=== PATIENT | female | born 1945 | race Caucasian/White ===

== ENCOUNTER 2020-08-29 07:06 | Observation (INO) ==
--- NOTE | 2020-07-21 12:07 | PAT Medication Instructions ---
Medication Instructions Date of Service July 21, 2020 Home Medications acetaminophen [Tylenol Arthritis] 650 mg PO Q12H aspirin [Aspir-81] 81 mg PO QAM calcium carbonate-vitamin D3 [Calcium 600 + D(3)] 1 cap PO QAM cholecalciferol (vitamin D3) 25 mcg PO QAM DO NOT take the morning of surgery calcium carbonate-vitamin D3 [Calcium 600 + D(3)] 1 cap PO QAM cholecalciferol (vitamin D3) 25 mcg PO QAM Take morning of surgery With a small sip of water, OTHERWISE NOTHING TO EAT OR DRINK AFTER MIDNIGHT: acetaminophen [Tylenol Arthritis] 650 mg PO Q12H (if needed, may be taken up to four hours before surgery) aspirin [Aspir-81] 81 mg PO QAM (unless otherwise instructed by your surgeon) Other Notes If you have any questions please call us at [phone] or [phone] or [phone] or [phone]
--- NOTE | 2020-07-26 09:21 | Anesthesiology Consultation ---
Date of Service July 26, 2020 Assessment & Plan (1) Encounter for pre-operative examination: - Abnormal preop CXR: Small focus of patchy nodular densities within the lingula. This could represent a low-grade pneumonia. Lobular density within the periphery the left midlung zone which favors overlapping tissue. However, dedicated chest CT is recommended to exclude the less likely possibility of a pleural-based lesion. Awaiting response from PCP regarding CXR findings. - Per assessment on 07/26: Travel screen negative. No known COVID-19 positive contacts or current COVID-19 related symptoms. Patient already had initial COVID vaccine > second vaccine scheduled 08/11. Surgeon arranging preop COVID testing. Awaiting results. Chart Review Chart Review: Patient seen in Pre Admission Testing History Surgery Operation Date: 08/29/20 07:15 Proposed Procedures p Right Total Hip Arthroplasty Anterior - Robert Castanon DO Height/Weight Height: 5 ft 4 in Weight: 48.9 kg Allergies Allergy/AdvReac Type Severity Reaction Status Date / Time No Known Allergies Allergy Verified 07/10/20 10:38 Medications Home Medications Medication Instructions Recorded Confirmed Last Taken aspirin [Aspir-81] 81 mg PO QAM 07/10/20 07/10/20 Unknown calcium carbonate-vitamin D3 1 cap PO QAM 07/10/20 07/10/20 Unknown [Calcium 600 + D(3)] cholecalciferol (vitamin D3) 25 mcg PO QAM 07/10/20 07/10/20 Unknown [Vitamin D3] Aleve 1 tab PO BID 07/26/20 07/26/20 Unknown Past Medical History Medical History Osteoarthritis Exercise / Class Metabolic Activity II 4-5 Yardwork/Stairs/Walk up hill Past Family History Family History Mother Diabetes Past Surgical History Surgical History History of bilateral tubal ligation History of cataract surgery bilat History of colonoscopy History of tooth extraction Past Anesthesia History No Hx of Anesthesia Complications and No Family Hx of Anesthesia Complications History of PONV No Hx of PONV and No Hx of Motion Sickness Social History Smoking Status: Former smoker Do You Dip or Chew Tobacco: No Smoking End Date: Quit 1983 (hx < 1/2 PPD x 10 years) Hx Alcohol Use: No Hx Substance Use: No substance use type: does not use Review of Systems No snoring. Patient denies chest pain, shortness of breath, dyspnea on exertion, fever, chills, cough, wheezing, palpitations. Physical Exam Vital Signs VITALS BP 164/72 (pt reports BP typically in normal range but sometimes elevated during doctor visits > advised to continue monitoring closely at home and contact PCP if continued elevated readings occur) P 96 TEMP 98.4 SP02 95%RA RESP 16 PHYSICAL Mildly decreased cervical extension Full TMJ range of motion. TMD 3 finger breaths Mallampati Score 3 Dentition: several missing sides/molars, + several caps (including upper front) Lungs: clear throughout to auscultation Cardiac: regular rate and rhythm, no murmurs noted Spine: normal Carotid arteries: negative bruit Extremities: no edema Testing Laboratory Results 07/26/20 10:02 07/26/20 10:02 PT 10.9 Seconds (9.0-12.0) 07/26/20 10:02 INR 1.1 (0.9-1.1) 07/26/20 10:02 APTT 26.1 Seconds (21.0-31.0) 07/26/20 10:02 Urine Color Yellow 07/26/20 10:02 Urine Appearance Clear (Clear) 07/26/20 10:02 Urine pH 7.5 (4.5-7.5) 07/26/20 10:02 Ur Specific [place] 1.011 (1.000-1.030) 07/26/20 10:02 Urine Protein Negative (Negative) 07/26/20 10:02 Urine Glucose (UA) Negative (Negative) 07/26/20 10:02 Urine Ketones Negative (Negative) 07/26/20 10:02 Urine Nitrite Negative (Negative) 07/26/20 10:02 Ur Leukocyte Esterase 1+ (Negative) H 07/26/20 10:02 Urine WBC (Auto) 1-5 /hpf (0-5) 07/26/20 10:02 Urine RBC (Auto) 0-4 /hpf (0-4) 07/26/20 10:02 U Hyaline Cast (Auto) 0 /lpf (0-5) 07/26/20 10:02 U Epithel Cells (Auto) 10-20 /lpf (0-5) H 07/26/20 10:02 Urine Bacteria (Auto) Negative (Negative) 07/26/20 10:02 Blood Type AB Positive 07/26/20 10:02 Antibody Screen NEGATIVE 07/26/20 10:02 Electrocardiogram Date: 07/26/20 NSR at 92bpm. iRBBB. unconfirmed report. Chest X-Ray Date: 07/26/20 Small focus of patchy nodular densities within the lingula. This could represent a low-grade pneumonia. Lobular density within the periphery the left midlung zone which favors overlapping tissue. However, dedicated chest CT is recommended to exclude the less likely possibility of a pleural-based lesion.
[2020-07-26 10:44] LABS: Basophils # (auto) 0.03 K/uL (0-0.2); Basophils % (auto) 0.5 %; Eosinophils # (auto) 0.05 K/uL (0-0.5); Eosinophils % (auto) 0.8 %; Hemoglobin 11.6 g/dL (12.0-16.0); Lymphocytes # (auto) 1.44 K/uL (1.2-3.4); Mean Corpuscular Hemoglobin 30.3 pg (25-34); Mean Corpuscular Hgb Conc 33.1 g/dL (32-36); Mean Corpuscular Volume 91.4 fL (80-100); Mean Platelet Volume 11.5 fL (7.4-10.4); Monocytes # (auto) 0.43 K/uL (0.11-0.59); Monocytes % (auto) 6.9 %; Neutrophils % (auto) 68.8 %; Platelet Count 278 K/uL (130-400); RDW Coefficient of Variation 13.1 % (11.5-14.5); RDW Standard Deviation 43.7 fL (36.4-46.3); Red Blood Count 3.83 M/uL (4.2-5.4); White Blood Count 6.25 K/uL (4.8-10.8)
--- NOTE | 2020-07-26 10:45 | XRay Report ---
XR chest Pre-admission PA/Lat HISTORY: Preop. COMPARISON: None. FINDINGS: Small patchy nodular densities within the lingula best seen on the lateral view. The right lung is clear. Lobular density within the periphery the left midlung zone is likely due to overlappin g soft tissue. However, a pleural-based lesion could also have a similar appearance. There is mild em physema. The heart is normal in size. No pleural effusions. No pneumothorax. IMPRESSION: 1. Small focus of patchy nodular densities within the lingula. This could represent a low-grade pneum onia. 2. Lobular density within the periphery the left midlung zone which favors overlapping tissue. Howeve r, dedicated chest CT is recommended to exclude the less likely possibility of a pleural-based lesion . 3. These findings were called/faxed to the referring physician following dictation. ACT 112: Negative or not required by law. Electronically signed by: Sammy Medel M.D. 07/26/2020 10:44 AM
[2020-07-26 10:49] LABS: BUN Creatinine Ratio 16.2 (10-20); Calcium 9.6 mg/dl (8.5-10.1); Creatinine Clr Calc Pharmacy 41.3 ml/min; Est GFR (African American) 73.5; Est GFR (Non-African American) 63.4; Potassium 4.2 mmol/L (3.5-5.1)
[2020-07-26 11:01] LABS: INR 1.1 (0.9-1.1); Partial Thromboplastin Time 26.1 Seconds (21.0-31.0); Prothrombin Time 10.9 Seconds (9.0-12.0)
[2020-07-26 11:07] LABS: Appearance Urine Clear (Clear); Bacteria Urine Automated Negative (Negative); Bilirubin Urine Negative (Negative); Blood Urine Trace (Negative); Cast Urine Automated 0 /lpf (0-5); Color Urine Yellow; Glucose Urine UA Negative (Negative); Ketones Urine Negative (Negative); Leukocyte Esterase Urine 1+ (Negative); Nitrite Urine Negative (Negative); Protein Urine Negative (Negative); RBC Urine Automated 0-4 /hpf (0-4); Specific Gravity Urine 1.011 (1.000-1.030); Urobilinogen Urine Negative (Negative); pH Urine 7.5 (4.5-7.5)
--- NOTE | 2020-07-27 06:12 | Electrocardiogram Report ---
Test Reason : Blood Pressure : / mmHG Vent. Rate : 092 BPM Atrial Rate : 092 BPM P-R Int : 138 ms QRS Dur : 094 ms QT Int : 370 ms P-R-T Axes : 077 076 062 degrees QTc Int : 457 ms Normal sinus rhythm Incomplete right bundle branch block Borderline ECG No previous ECGs available Confirmed by Ajit Gibson ([id number]) on 07/27/2020 6:11:57 AM Referred By: Robert Castanon Confirmed By:Ajit Gibson
--- NOTE | 2020-08-26 22:34 | History & Physical Report ---
Date of Service August 29, 2020 Assessment & Plan (1) Degenerative joint disease of right hip: I have indicated the patient for right anterior total hip replacement. The risks, benefits and complications of surgery were explained to the patient which include but not limited to infection, acute blood loss, DVT/PE, injury to nerves, vessels, bone, soft tissue, arthrofibrosis, chronic pain, failure of the prosthesis, hip dislocation, leg length discrepancy, need for additional surgery, cardiac and pulmonary events and . The patient wished to proceed with surgery and informed consent was obtained at this time. We will plan for 81mg ASA BID post-operatively for DVT prophylaxis. Upon discharge the patient will be discharged home with home health services. Appropriate clearances by PCP were obtained. History of Present Illness Chief Complaint: Right hip pain/DJD Primary Care Provider: Kleber Rodriguez The patient is a 75 year old female who presents with complaints of severe right hip pain and DJD. The patient has failed outpatient conservative treatments to this point which included NSAIDs, IA corticosteroid injection, home exercise/walking program. The patient's pain and limited function have progressed to the point where they severely hinder their activities of daily living and they no longer tolerate exercise programs. They are requesting to proceed with total hip replacement surgery. Allergies Allergy/AdvReac Type Severity Reaction Status Date / Time No Known Allergies Allergy Verified 08/29/20 08:01 Home Medications Medication Instructions Recorded Confirmed Type aspirin [Aspir-81] 81 mg PO QAM 07/10/20 08/29/20 History calcium carbonate-vitamin D3 1 cap PO QAM 07/10/20 08/29/20 History [Calcium 600 + D(3)] cholecalciferol (vitamin D3) 25 mcg PO QAM 07/10/20 08/29/20 History [Vitamin D3] Aleve 1 tab PO BID 07/26/20 08/29/20 History Past Med/Surg History Medical History Osteoarthritis Surgical History History of bilateral tubal ligation History of cataract surgery bilat History of colonoscopy History of tooth extraction Family History Mother Diabetes Social History Smoking Status: Former smoker Smoking End Date: Quit 1983 (hx < 1/2 PPD x 10 years); Second Hand Exposure: No; Do You Dip or Chew Tobacco: No; Tobacco Cessation Education Requested by Patient: No Hx Alcohol Use: No Hx Substance Use: No Preferred Language: Colombian Communication Ability: Effective Tanning Drum Operator Required: No Beliefs That Will Affect Care: None Current Living Situation: Spouse Other Information That Helps Us Care for You: No Feels Safe at Home: Yes Safety Concerns: Feels Safe At This Time Assistive Devices: Glasses Review of Systems Review of Systems: All systems reviewed & are unremarkable except as noted in HPI & below Constitutional: as per Subjective / HPI Physical Exam Physical Exam: RLE NVSI +EHL/FHL/TA/GS SILT grossly, +2 DP pulse, compartments soft NT, limited painful ROM of iker hip, antalgic gait. Constitutional: WD/WN, vitals as above Eyes: PERRL, conjunctivae normal, anicteric sclerae ENMT: external ear and nose normal, oropharynx normal Neck: trachea midline, no thyromegaly Respiratory: normal respiratory effort, lungs clear to auscultation Cardiovascular: RRR, no murmur, no edema Gastrointestinal (Abdomen): normal bowel sounds, soft, nontender, no hepatosplenomegaly Musculoskeletal: no cyanosis or clubbing, extremities motor strength 5/5 Skin: no rashes, warm and dry Neurologic: patellar DTR's 2+ bilat, sensation intact Lymphatic: no cervical or axillary lymphadenopathy Results & Data Results & Data ([facility]) Diagnostic Findings Multiple views of the hip demonstrates severe DJD with complete loss of the joint space. +osteophytes, +sclerosis, +subchondral cysts. Pre Admission Testing Addendum Laboratory Results 07/26/20 10:02 07/26/20 10:02 PT 10.9 Seconds (9.0-12.0) 07/26/20 10:02 INR 1.1 (0.9-1.1) 07/26/20 10:02 APTT 26.1 Seconds (21.0-31.0) 07/26/20 10:02 Urine Color Yellow 07/26/20 10:02 Urine Appearance Clear (Clear) 07/26/20 10:02 Urine pH 7.5 (4.5-7.5) 07/26/20 10:02 Ur Specific [place] 1.011 (1.000-1.030) 07/26/20 10:02 Urine Protein Negative (Negative) 07/26/20 10:02 Urine Glucose (UA) Negative (Negative) 07/26/20 10:02 Urine Ketones Negative (Negative) 07/26/20 10:02 Urine Nitrite Negative (Negative) 07/26/20 10:02 Ur Leukocyte Esterase 1+ (Negative) H 07/26/20 10:02 Urine WBC (Auto) 1-5 /hpf (0-5) 07/26/20 10:02 Urine RBC (Auto) 0-4 /hpf (0-4) 07/26/20 10:02 U Hyaline Cast (Auto) 0 /lpf (0-5) 07/26/20 10:02 U Epithel Cells (Auto) 10-20 /lpf (0-5) H 07/26/20 10:02 Urine Bacteria (Auto) Negative (Negative) 07/26/20 10:02 Blood Type AB Positive 07/26/20 10:02 Antibody Screen NEGATIVE 07/26/20 10:02
[~2020-08-29 07:06] MED LIST: ACETAMINOPHEN 500 MG TAB PO SCH; BUPIVACAINE 0.5 % 5 MG/1 ML PF 10ML VIAL ONE; CeleBREX 200 MG CAP PO SCH; FAMOTIDINE 20 MG TAB PO SCH; GABAPENTIN 300 MG CAP PO SCH; LR 500ML BOLUS, THEN 15ML/HR IV SCH; METOCLOPRAMIDE HCL 10 MG TABLET PO SCH; ROPIVACAINE 0.5% HCL/PF 150 MG, BUPIVACAINE 0.75% MPF 20 ML, EPINEPHrine 30MG/30ML (OR ... INSTIL SCH; TRANEXAMIC ACID 1,000 MG **IV Intra-op IV SCH; TRANEXAMIC ACID 1,000 MG **IV Pre-op IV SCH; ceFAZolin 1000MG 1,000 MG/7.5 ML SYR IV SCH; dexAMETHasone 4 MG TAB PO SCH; oxyCODONE HCL 10 MG TABCR (OxyCONTIN) PO SCH
[2020-08-29] MEDS ORDERED: dexAMETHasone 4 MG TAB PO ONE (07:37)
[2020-08-29] MEDS ORDERED: ACETAMINOPHEN 500 MG TAB ONE (07:37)
[2020-08-29] MEDS ORDERED: FAMOTIDINE 20 MG TAB ONE (07:37)
[2020-08-29] MEDS ORDERED: CeleBREX 200 MG CAP ONE (07:37)
[2020-08-29] MEDS ORDERED: TRANEXAMIC ACID / 0.7% NACL 1000MG/100ML BAG IV ONE (07:38)
[2020-08-29] MEDS ORDERED: METOCLOPRAMIDE HCL 10 MG TABLET ONE (07:39)
[2020-08-29] MEDS ORDERED: GABAPENTIN 300 MG CAP ONE (07:39)
[2020-08-29] MEDS ORDERED: MIDAZOLAM HCL 1 MG/ML 2ML VIAL ONE ×2 (08:17)
[2020-08-29] MEDS ORDERED: fentaNYL citrate 100 MCG/2 ML VIAL ONE (08:17)
[2020-08-29] MEDS ORDERED: ePHEDrine sulfate 50 MG/ML AMP IV PRN (08:46)
[2020-08-29] MEDS ORDERED: ATROPINE SULFATE 0.1 MG/ML 10ML SYR IV PRN (08:46)
[2020-08-29] MEDS ORDERED: ONDANSETRON INJ 2 MG/ML 2 ML VIAL IV PRN ×2 (08:46→13:00)
[2020-08-29] MEDS ORDERED: fentaNYL citrate 100 MCG/2 ML VIAL IV PRN (08:46)
--- NOTE | 2020-08-29 09:07 | History & Physical Bridge Note ---
Date of Service August 29, 2020 History & Physical Bridge Note I have examined the patient, reviewed the History & Physical and in the interval since the performance of the History & Physical I have noted the following changes of clinical significance: no changes noted
[2020-08-29] MEDS ORDERED: oxyCODONE HCL 10 MG TABCR (OxyCONTIN) PO ONE (09:10)
[2020-08-29] MEDS ORDERED: BACITRACIN INJ 50,000 UNIT VIAL ONE (09:16)
[2020-08-29] MEDS ORDERED: ORTHO JOINT ANESTHETIC ONE (09:16)
[2020-08-29] MEDS ORDERED: PROPOFOL IV EMULSION 10 MG/ML 20 ML VIAL IV ONE (10:47)
[2020-08-29] MEDS ORDERED: ePHEDrine sulfate 50 MG/ML SYR ONE (10:47)
[2020-08-29] MEDS ORDERED: LIDOCAINE HCL 2% 2 ML VIAL/AMP(20MG/ML) INFIL ONE (10:47)
[2020-08-29] MEDS ORDERED: TRANEXAMIC ACID / 0.7% NACL 1,000 MG/100 ML BAG IV ONE (11:21)
--- NOTE | 2020-08-29 11:32 | Post Operative Brief Note ---
Immediate Post Op Note v1 Date of Surgery August 29, 2020 Pre & Post Diagnosis Operation Date: 08/29/20 09:45 Pre-Op Diagnosis: Osteoarthritis Hip Right Post-Op Diagnosis: Osteoarthritis Hip Right I identified the patient and participated in the time-out.: Yes Procedure Operation Date: 08/29/20 09:45 Actual Procedures p Right Anterior Total Hip Arthroplasty(Right) - Robert Castanon DO Surgeon Robert Castanon DO Gun Examiner lAessandro Beck Estimated Blood Loss 175 Findings Consistent with Post-Op Diagnosis Fluids See anesthesia report Specimens Femoral head Anesthesia Type Spinal MAC Complications none Disposition Disposition: Recovery Room Overlapping Procedure I was present for: the critical portions of procedure. I was immediately available: during the entire case. Back up surgeon: was not required during procedure.
--- NOTE | 2020-08-29 11:34 | Operative Report ---
Post Operative Report Pre & Post Diagnosis Operation Date: 08/29/20 09:45 Pre-Op Diagnosis: Osteoarthritis Hip Right Post-Op Diagnosis: Osteoarthritis Hip Right I identified the patient and participated in the time-out.: Yes Procedure Operation Date: 08/29/20 09:45 Actual Procedures p Right Anterior Total Hip Arthroplasty(Right) - Robert Castanon DO Surgeon Robert Castanon DO Remnants Cutter Alessandro Beck Estimated Blood Loss 175 Findings Consistent with Post-Op Diagnosis Fluids See anesthesia report Specimens Femoral head Anesthesia Type Spinal MAC Complications none Disposition Disposition: Recovery Room Indications The patient is a 75-year-old female who presents with severe progressive right hip DJD who has failed outpatient conservative treatments. I indicated the pa tient for a anterior total hip replacement and the risks and benefits were explained in detail which include but not limited to infection, bleeding, blood clot, damage to surrounding bone, nerves, vessels, soft tissue, hip dislocation, failure of the prosthesis, leg length discrepancy, need for additional surgery and . The patient agreed to proceed with replacement of the hip and informed consent was obtained. Appropriate clearances were obtained. Description of Procedure COMPONENTS USED: [employer] hip system: Acetabulum size 52, femur size 10 extended offset, femoral head 3623.4, liner 52x36, acetabular screw 30 mm x 1. DESCRIPTION OF PROCEDURE: Following satisfactory spinal anesthesia, the patient was placed supine on the OR table. The left leg was placed in the well leg burt and the right leg in the traction device. The right leg was prepared with ChloraPrep and draped sterilely. A surgical timeout was performed, patient identified and site smitha verified. Appropriate antibiotics were given. A standard anterior approach in the interval between the sartorius and tensor muscles was performed. Dissection was carried down through subcutaneous tissues. Electrocautery was utilized for hemostasis. Circumflex femoral vessels were identified, tied and ligated. The anterior capsular fat pad was removed and the capsulotomy was performed revealing the arthritic femoral neck and head. A femoral neck cut was made with reciprocating saw and the bone fragments removed. The acetabular self-retraining retractor was placed. Acetabular reaming was completed under fluoroscopic guidance, a 52 mm shell was impacted into an anatomic position and secured with a acetabular screw. Local anesthetic was placed and following irrigation, the polyethylene liner was placed. The femur was placed into position of external rotation, extension and adduction. Femoral canal was prepared up to the size 10 extended offset. Trial reduction with a 36-3.5 neck length head showed good soft tissue tension, leg lengths restored, and good fit and fill of the proximal canal using fluoroscopic landmarks. The hip was dislocated. The trial component was removed. The final implant was placed. The hip was irrigated with sterile saline solution and reduced. A Betadine soak was performed. After 3 minutes, the hip was once more irrigated with copious sterile saline solution with bacitracin. Opal-incisional soft tissue was injected utilizing [place] Orthomix which includes a combination of Ropivicaine 0.5% 150mg, Bupivicaine 0.5%/Epinephrine 1:200,000 30ml, Toradol 30mg, Dexamethasone 4mg, Ketamine 10mg, Clonidine 100mcg and NSS 30ml solution. The capsule was then closed with 1-0 Vicryl interrupted figure of eight sutures. The fascia was closed with a running suture of #1 Vicryl, the subcutaneous tissues with 2-0 Vicryl and the skin with a running subcuticular stitch of 3-0 V-Loc. Dermabond prineo and a dry dressing were applied. The patient tolerated the procedure well and was transported to PACU in stable condition. Due to the complex nature of the procedure, the entire surgery was performed with the operational assistance of Alessandro Beck PA-C. The senior office assistant, under direct supervision, was involved in the actual performance of all aspects of the surgical procedure including patient positioning, hemostasis, tissue retraction, instrument management and wound closure. I attest to the content of the Intraoperative Record and any orders documented therein. Any exceptions are noted below.
--- NOTE | 2020-08-29 11:42 | Fluoroscopy Report ---
FL hip RT 1V HISTORY: 75 years-old Female RT ANTERIOR HP right hip total joint arthroplasty COMPARISON: None TECHNIQUE: 2 spot fluoroscopic views of the right hip were obtained utilizing 37.8 seconds fluoroscop y time FINDINGS: Right hip total joint arthroplasty. Satisfactory alignment without acute fracture. No retained foreig n body identified. Moderate left hip osteoarthritis. IMPRESSION: Fluoroscopic assistance as above. ACT 112: Negative or not required by law. The above report was generated using voice recognition software. It may contain grammatical, syntax o r spelling errors. Electronically signed by: Haroldo Albarran M.D. 08/29/2020 11:41 AM
--- NOTE | 2020-08-29 12:04 | Anesthesiology Progress Note ---
Date of Service August 29, 2020 Anesthesia Post Procedure Vital Signs Vital Signs: Temp Pulse Resp BP BP Pulse Ox 08/29/20 11:49 36.9 C 104 H 13 128/66 100 08/29/20 07:30 36.8 C 106 H 18 169/79 H 96 Pain Intensity Right Hip: Pain Intensity: 8 Transfer of Care Handoff Completed per policy Notes Mental Status: alert / awake / arousable and participated in evaluation Nausea / Vomiting: adequately controlled Pain: adequately controlled Airway Patency, RR, SpO2: stable & adequate BP & HR: stable & adequate Hydration State: stable & adequate Neuraxial Anesthesia: was administered and sensory block is resolving Anesthetic Complications: no major complications apparent and Pt Satisfied with anesthetic care
--- NOTE | 2020-08-29 12:11 | XRay Report ---
XR hip 1V RT w pelvis CLINICAL HISTORY: Postoperative study COMPARISON: None. DISCUSSION: There are postsurgical changes of a total right hip arthroplasty. The acetabular and femo ral components appear well seated. There is no dislocation. There is gas present within the soft tiss ues consistent with recent surgery IMPRESSION: Postsurgical changes of a total right hip arthroplasty. ACT 112: Negative or not required by law. Electronically signed by: Taco Cardona M.D. 08/29/2020 12:10 PM
[2020-08-29] MEDS ORDERED: METOCLOPRAMIDE HCL INJ 5 MG/ML 2 ML VIAL IV PRN (13:00)
[2020-08-29] MEDS ORDERED: diphenhydrAMINE Capsule 25 MG CAP PO PRN (13:00)
[2020-08-29] MEDS ORDERED: oxyCODONE HCL IR 5 MG TAB (IMMEDIATE RELEASE) PO PRN (13:00)
[2020-08-29] MEDS ORDERED: NALOXONE HCL 0.4 MG/1 ML VIAL/CARP IV PRN (13:00)
[2020-08-29] MEDS ORDERED: bisacodyL 10 MG SUPP PR PRN (13:00)
[2020-08-29] MEDS ORDERED: HYDROmorphone INJ 0.5 MG/0.5 ML SYR IV PRN (13:00)
[2020-08-29] MEDS ORDERED: MAGNESIUM HYDROXIDE SUSP 30 ML UDC PO PRN (13:00)
[2020-08-29] MEDS: SODIUM CHLORIDE 0.9% 1000ML 1,000 ML IV SCH ×2 (13:19→21:47)
[2020-08-29] MEDS: KETOROLAC TROMETHAMINE 15 MG/ML VIAL IV SCH ×2 (13:22→19:45)
[2020-08-29] MEDS: ACETAMINOPHEN 500 MG TAB PO SCH ×2 (13:22→21:47)
--- NOTE | 2020-08-29 13:27 | Hospitalist Consultation ---
Date of Consultation August 29, 2020 Assessment & Plan (1) Degenerative joint disease of right hip: Patient underwent right anterior total hip arthroplasty on 08/29/[address] Robert Castanon Medical clearance was given by her primary care provider. She is known to have right bundle branch block on outpatient EKG. There are no active medical problems at this time we will continue to be available stoneworker of medical problems arise at this point time will sign off (2) COPD (chronic obstructive pulmonary disease): Patient has been relatively asymptomatic this was noted on CT scan of her chest (3) DVT prophylaxis: Surgery is chosen aspirin 81 twice daily for DVT prevention History of Present Illness Attending Physician: Robert Castanon DO History of Present Illness I think the patient for postoperative medical management is 75-year-old female who is having some osteoarthritis and typically takes medications of aspirin 81 a day Aleve and vitamins. Patient had medical clearance by her primary care provider which included a CT scan of her chest in a regular chest x-ray. The CT scan of her chest however did not bear any unusual findings other than some mild COPD from her history of smoking of which she quit 1983. Allergies Allergy/AdvReac Type Severity Reaction Status Date / Time No Known Allergies Allergy Verified 08/29/20 08:01 Home Medications Medication Instructions Recorded Confirmed Type aspirin [Aspir-81] 81 mg PO QAM 07/10/20 08/29/20 History calcium carbonate-vitamin D3 1 cap PO QAM 07/10/20 08/29/20 History [Calcium 600 + D(3)] cholecalciferol (vitamin D3) 25 mcg PO QAM 07/10/20 08/29/20 History [Vitamin D3] Aleve 1 tab PO BID 07/26/20 08/29/20 History Patient History Medical History Osteoarthritis Surgical History History of bilateral tubal ligation History of cataract surgery bilat History of colonoscopy History of tooth extraction Family History Mother Diabetes Social History Smoking Status: Former smoker Smoking End Date: Quit 1983 (hx < 1/2 PPD x 10 years); Second Hand Exposure: No; Do You Dip or Chew Tobacco: No; Tobacco Cessation Education Requested by Patient: No Hx Alcohol Use: No Hx Substance Use: No Preferred Language: Czech Communication Ability: Effective Zigzag Elastic Attacher Required: No Beliefs That Will Affect Care: None Current Living Situation: Spouse Other Information That Helps Us Care for You: No Feels Safe at Home: Yes Safety Concerns: Feels Safe At This Time Assistive Devices: Walker Review of Systems Review of Systems: Mild distress and fatigue no headache, blurry or double vision no speech or swallowing issues no chest pain, pressure or palpitations no shortness of breath, cough or wheezes no abdominal pain, nausea or vomiting, diarrhea or constipation no dysuria, hematuria or frequency Patient still some anesthesia but her right hip is not painful in anyway no back pain, CVA tenderness or radicular pain no bruising, bleeding or rashes no focal signs of weakness or numbness or altered sensation no complaints of anxiety or depression.. Physical Exam Physical Exam: The patient appeared well nourished and normally developed. Vital signs as documented. Head exam is normocephalic atraumatic no scleral icterus Neck is without JVD, thyromegaly, or carotid bruits. Lungs are clear to auscultation, no focal loss of breath sounds Cardiac exam, Rhythm is regular.. No murmurs, rubs or gallops. Abdominal exam reveals normal bowel sounds, soft non tender, no masses Extremities are nonedematous and both pedal pulses are present Still some decreased strength of her lower leg due to persistent anesthesia Neurologic exam is alert and oriented, no focal loss of strength or sensation Skin is without bruises or rashes Psychologically is without concerns for anxiety or depression Results & Data Results & Data ([facility]) Vital Signs (Past 12 Hours) Vital Signs Temp Pulse Pulse Resp BP BP Pulse Ox 08/29/20 13:00 97.5 F L 100 H 16 117/62 93 08/29/20 12:30 98.1 F 111 H 16 133/69 94 08/29/20 12:15 98.4 F 107 H 18 123/69 93 08/29/20 12:05 105 H 24 127/69 99 08/29/20 11:55 100 H 19 120/58 L 100 08/29/20 11:49 98.4 F 104 H 13 128/66 100 03/23/21 07:30 98.2 F 106 H 18 169/79 H 96 PG Care Time/CCT Total # of Minutes Spent Total Time Spent with Patient: Total time spent is greater than 50% in coordination of care (as documented) at patient's floor/unit and/or counseling patient: Coding Level of Care Code 40093 Inpt Consult Level 2 Diagnoses Degenerative joint disease of right hip M16.11 COPD (chronic obstructive pulmonary disease) J44.9 DVT prophylaxis Z29.9
--- NOTE | 2020-08-29 16:30 | Orthopedic Progress Note ---
Date of Service August 29, 2020 Assessment & Plan (1) Degenerative joint disease of right hip: s/p right anterior MARY -ancef x 24 -DVT ppx: SCDs, TEDs, 81mg ASA BID -WBAT RLE -PT/OT -PO XR demonstrates a well aligned well fixed prosthesis without fracture/dislocation -am labs -DC planning Admission and Anticipated Discharge Date Admission Date: August 29, 2020 Subjective Post Operative Progress Note Patient seen sitting up in bed, comfortable, denies complaints, pain well controlled, no acute issues. Review of Systems Review of Systems: All systems reviewed & are unremarkable except as noted in HPI & below Constitutional: as per Subjective / HPI Physical Exam Physical Exam: RLE NVSI +EHL/FHL/TA/GS SILT grossly, +2 DP pulse, compartments soft NT, dressing cdi. Constitutional: WD/WN, vitals as above Results & Data ([facility]) Vital Signs (Past 12 Hours) Vital Signs Temp Pulse Pulse Resp BP BP Pulse Ox 08/29/20 15:30 36.6 C 109 H 18 141/65 H 97 08/29/20 14:19 36.6 C 107 H 16 139/70 95 08/29/20 13:27 108 H 16 135/67 94 08/29/20 13:00 36.4 C L 100 H 16 117/62 93 08/29/20 12:30 36.7 C 111 H 16 133/69 94 08/29/20 12:15 36.9 C 107 H 18 123/69 93 08/29/20 12:05 105 H 24 127/69 99 08/29/20 11:55 100 H 19 120/58 L 100 08/29/20 11:49 36.9 C 104 H 13 128/66 100 08/29/20 07:30 36.8 C 106 H 18 169/79 H 96
[2020-08-29] MEDS: ceFAZolin 1000MG 1,000 MG/7.5 ML SYR IV SCH (17:54)
[2020-08-29] MEDS ORDERED: SENNA 8.6 MG TAB PO SCH (21:00)
[2020-08-29] MEDS: DOCUSATE SODIUM 100 MG CAP PO SCH (21:46)
[2020-08-30] MEDS: ceFAZolin 1000MG 1,000 MG/7.5 ML SYR IV SCH (02:39)
[2020-08-30] MEDS: KETOROLAC TROMETHAMINE 15 MG/ML VIAL IV SCH ×2 (02:39→07:59)
[2020-08-30] MEDS: ACETAMINOPHEN 500 MG TAB PO SCH (05:37)
[2020-08-30 06:01] LABS: Hematocrit (blood only) 28.2 % (37-47); Hemoglobin 9.5 g/dL (12.0-16.0); Immature Granulocytes # (auto) 0.02 K/uL (0.00-0.02); Immature Granulocytes % (auto) 0.2 %; Lymphocytes # (auto) 1.09 K/uL (1.2-3.4); Lymphocytes % (auto) 12.5 %; Mean Corpuscular Hgb Conc 33.7 g/dL (32-36); Mean Platelet Volume 11.1 fL (7.4-10.4); Monocytes # (auto) 0.75 K/uL (0.11-0.59); Monocytes % (auto) 8.6 %; Neutrophils # (auto) 6.83 K/uL (1.4-6.5); Neutrophils % (auto) 78.7 %; Platelet Count 228 K/uL (130-400); RDW Coefficient of Variation 13.4 % (11.5-14.5); RDW Standard Deviation 44.3 fL (36.4-46.3); Red Blood Count 3.17 M/uL (4.2-5.4); White Blood Count 8.69 K/uL (4.8-10.8)
[2020-08-30 06:31] LABS: BUN Creatinine Ratio 27.5 (10-20); Calcium 8.7 mg/dl (8.5-10.1); Creatinine Clr Calc Pharmacy 49.7 ml/min; Est GFR (African American) 95.2; Est GFR (Non-African American) 82.2; Potassium 4.2 mmol/L (3.5-5.1)
[2020-08-30] MEDS: DOCUSATE SODIUM 100 MG CAP PO SCH (07:59)
[2020-08-30] MEDS ORDERED: MULTIVITAMIN TAB PO SCH (09:00)
[2020-08-30] MEDS ORDERED: ASPIRIN 81 MG ECTAB PO SCH (09:00)
--- NOTE | 2020-08-30 10:54 | Orthopedic Progress Note ---
Date of Service August 30, 2020 Assessment & Plan (1) Degenerative joint disease of right hip: s/p right anterior MARY POD#1 -ancef x 24 -DVT ppx: SCDs, TEDs, 81mg ASA BID -WBAT RLE -PT/OT -PO XR demonstrates a well aligned well fixed prosthesis without fracture/dislocation -am labs - as above, hgb 9.5 -DC planning - home with Admission and Anticipated Discharge Date Admission Date: August 29, 2020 Subjective Post Operative Progress Note Patient seen sitting in chair at bedside, comfortable, denies complaints, pain well controlled, no acute issues. Denies F/C/N/V/SOB/CP. Review of Systems Review of Systems: All systems reviewed & are unremarkable except as noted in HPI & below Constitutional: as per Subjective / HPI Physical Exam Physical Exam: RLE NVSI +EHL/FHL/TA/GS SILT grossly, +2 DP pulse, compartments soft NT, dressing cdi. Constitutional: WD/WN, vitals as above Results & Data ([facility]) Vital Signs (Past 12 Hours) Vital Signs Temp Pulse Resp BP Pulse Ox 08/30/20 07:13 37.0 C 85 16 145/64 H 96 08/30/20 04:36 36.7 C 84 16 139/71 96 08/29/20 23:00 36.6 C 81 20 136/69 97 Laboratory Results 08/30/20 08/30/20 Range/Units 05:26 05:26 WBC 8.69 (4.8-10.8) K/uL RBC 3.17 L (4.2-5.4) M/uL Hgb 9.5 L (12.0-16.0) g/dL Hct 28.2 L (37-47) % MCV 89.0 (80-100) fL MCH 30.0 (25-34) pg MCHC 33.7 (32-36) g/dL RDW Std Deviation 44.3 (36.4-46.3) fL RDW Coeff of Gavin 13.4 (11.5-14.5) % Plt Count 228 (130-400) K/uL MPV 11.1 H (7.4-10.4) fL Immature Gran % (Auto) 0.2 % Neut % (Auto) 78.7 % Lymph % (Auto) 12.5 % Bacon % (Auto) 8.6 % Eos % (Auto) 0.0 % Baso % (Auto) 0.0 % Neut # (Auto) 6.83 H (1.4-6.5) K/uL Lymph # (Auto) 1.09 L (1.2-3.4) K/uL Bacon # (Auto) 0.75 H (0.11-0.59) K/uL Eos # (Auto) 0.00 (0-0.5) K/uL Baso # (Auto) 0.00 (0-0.2) K/uL Immature Gran # (Auto) 0.02 (0.00-0.02) K/uL Sodium 139 (136-145) mmol/L Potassium 4.2 (3.5-5.1) mmol/L Chloride 111 H (98-107) mmol/L Carbon Dioxide 25 (21-32) mmol/L Anion Gap 4.0 (3-11) BUN 19 H (7-18) mg/dl Creatinine 0.71 (0.6-1.2) mg/dl Est Cr Clr Drug Dosing 49.7 ml/min Est GFR ( Amer) 95.2 Est GFR (Non-Af Amer) 82.2 BUN/Creatinine Ratio 27.5 H (10-20) Glucose 108 H (70-99) mg/dl Calcium 8.7 (8.5-10.1) mg/dl
[2020-08-30] MEDS ORDERED: CeleBREX 200 MG CAP PO SCH (13:00)
--- NOTE | 2020-08-30 20:24 | Discharge Summary ---
Date of Service August 30, 2020 Admission HPI Per Admitting Provider The patient is a 75 year old female who presents with complaints of severe right hip pain and DJD. The patient has failed outpatient conservative treatments to this point which included NSAIDs, IA corticosteroid injection, home exercise/walking program. The patient's pain and limited function have progressed to the point where they severely hinder their activities of daily living and they no longer tolerate exercise programs. They are requesting to proceed with total hip replacement surgery. Principal Diagnosis Right anterior total hip replacement -Right hip DJD Discharge Exam RLE NVSI +EHL/FHL/TA/GS SILT grossly, +2 DP pulse, compartments soft NT, dressing cdi. Constitutional WD/WN, vitals as above Discharge Data Allergies Allergy/AdvReac Type Severity Reaction Status Date / Time No Known Allergies Allergy Verified 08/29/20 08:01 Consultations 08/24/20 10:52 Consult Hospitalist Routine Procedures Performed Operation Date: 08/29/20 09:45 Actual Procedures p Right Anterior Total Hip Arthroplasty(Right) - Robert Castanon DO Ordered Studies 08/29/20 12:05 FL fluoroscopy <1hr Routine FL hip RT 1V Routine Hospital Course (1) Degenerative joint disease of right hip: The patient is a 75 -year-old female who presents with long standing history of severe right hip DJD and failed outpatient conservative treatments. The patient's symptoms have progressed to the point where it has been difficult to perform even normal activities of daily living. I indicated the patient for a right anterior total hip arthroplasty, the risks, benefits and complications of the procedure include but not limited to infection, bleeding, damage to bone, nerves, vessels, surrounding soft tissue, may develop blood clots, loss of function, leg length discrepancy, dislocation, failure of the components, loosening of the components, the need for additional surgery and . The patient wished to proceed with surgery at this time and informed consent was obtained. Hospital Course: On 08/29/20 the patient was taken to the operating room, adequate anesthesia administered and underwent a right anterior total hip arthroplasty. The patient tolerated the procedure well and was taken to the PACU in stable condition. Post-operatively the patient was started on a DVT ppx medication and given appr opriate IV antibiotics. Consults were placed to physical therapy, occupational therapy and case management. On POD#1, the patient did well overnight and their pain was well controlled. Labs were drawn and the Hgb was 9.5. The patient progressed well with PT. Dressings were changed at this time and the incision was clean, dry and intact. The patients hospital stay was relatively uneventful and they were deemed stable by the orthopedic team and consultants to be discharged home with HH on 08/30/20. Discharge Instructions: Upon discharge the patient may weight bear as tolerates through their operative extremity. They were instructed to keep the incision clean and dry at all times. The patient may shower but should not submerge the incision, avoid bathing, pools and hot tubs. The patient was given a script for pain medication and should take as instructed. The patient was given a script for DVT ppx 81mg ASA BID and should take as directed. The patient was instructed to not drive or travel for long distances until cleared to do so. If the patient develops any symptoms of fevers, chills, nausea, vomiting, increased redness, swelling, pain or drainage from the surgical site, they should notify the office and/or proceed to the nearest emergency room. The patient should follow up in 10-14 days after surgery for their routine post-operative follow-up appointment and should call the office, to confirm the date and time. s/p right anterior MARY POD#1 -ancef x 24 -DVT ppx: SCDs, TEDs, 81mg ASA BID -WBAT RLE -PT/OT -PO XR demonstrates a well aligned well fixed prosthesis without fracture/dislocation -am labs - as above, hgb 9.5 -DC planning - home with Total Time Total Time Spent Total Time Spent (In Minutes): 30 Discharge Plan Discharge Items Patient Disposition: Home - Home Health Services Reason For Visit: Osteoarthritis Hip Right Discharge Diagnosis: Right anterior total hip replacement Condition on Discharge: Good Activity: Per Instructions section Lifting: Wait until after follow-up appointment Bathing: Keep incision dry Bathing Comment: No bathing, pools or hot tubs. Sexual Activity: Wait until after follow-up appointment Exercise/Sports: Wait until after follow-up appointment Driving/Machine Use: No driving Weightbearing: Full weightbearing Non-emergency contact: Primary Care Provider and Surgeon Call non-emergency contact if: you have any medication questions, your symptoms worsen, your pain is not controlled and your pain is worsening Follow-up/Referrals: Kleber Rodriguez [Primary Care Provider] - Diet: Regular Addtl Attending Provider Instructions: ACTIVITY RECOMMENDATIONS: SELF CARE INSTRUCTIONS AFTER TOTAL HIP REPLACEMENT : Direct Anterior Approach Until the incision and soft tissues around your hip have healed, there is a possibility that the hip prosthesis could dislocate. A. Hip flexion ( Up & Down out of chair or steps ) may be difficult. This is normal. B. Numbness in front of the thigh is also normal for a few weeks. C. Use hand rails when walking on stairs. D. Wear low heeled shoes with non-slip soles. E. Be sure that your floors are free of things that could trip you - throw rugs, electrical cords, small objects. Avoid wet and waxed floors, especially with crutches and canes. F. Try to walk several times a day with rest periods between. G. Continue with all the exercises taught to you in the hospital. Again, make walking a part of your daily routine. SPECIAL CARE INSTRUCTIONS: VERY IMPORTANT TO READ AND REVIEW A. You may still be at risk for phlebitis and blood clots. 1. Wear surgical stockings (KULDEEP hose) for 2 weeks after surgery to improve circulation and reduce swelling. 2. Take Aspirin 81mg twice daily for 4 weeks or as directed by your doctor. This is your blood thinner. 3. High risk patients may be prescribed a stronger blood thinner if necessary. 4. If you are on Coumadin normally, your family doctor/branch maker should monitor your blood work. Expect a phone call the day of or the day after bloodwork is drawn to adjust your dosage. B. You must take antibiotics before having dental work, bladder, bowel and other surgery. Your doctor will provide you with a permanent card to carry describing precautions. C. Call [facility] if you have a fever, redness or swelling around the incision, cloudy drainage from incision, or sudden increase in pain in your hip, not relieved by your regular pain medication. D. Please call the office at if you have any concerns or questions about your operation or recovery. * YOU MAY SHOWER, NO TUB BATHS UNTIL CLEARED BY YOUR DOCTOR. - Keep an extra close eye on the top portion of your incision. Be sure to keep clean & dry. * WEAR KULDEEP HOSE 20 HOURS PER DAY FOR 2 WEEKS. * YOU MAY PROGRESS FROM A WALKER, TO A CANE, TO INDEPENDENT AT YOUR OWN PACE. * MOST PATIENTS WILL HAVE HOME NURSING FOR THERAPY. IF YOU DECIDE TO DO OUTPATIENT PHYSICAL THERAPY, PLEASE SCHEDULE THIS 3 TIMES PER WEEK. * DERMABOND Prineo- This is a mesh tape dressing that is covered with glue. It should remain in place until the incision is properly healed, usually 10-14 days. This dressing is designed to naturally slough off. You may trim the excess mesh tape as it peels off. Incision may be briefly wet in a shower. Dry immediately by blotting with a clean, dry towel. Do not bath or swim until instructed by your doctor. Do not scratch, rub, or pick at the dressing. Do not apply any topical ointments or lotions until dressing is completely removed and/or instructed by your doctor. There may be a small piece of suture material at one end of your incision. Do not pull or trim this. If it is bothersome or catching on clothing, you may cover it with a band-aid. FOLLOW UP VISIT: If appointment is not already scheduled: Please call [facility] to make a follow-up appointment for 2 weeks after your surgery at . Pending Studies at Discharge: No Stand-Alone Forms: My [facility], Smoking Cessation Medications and DC Order Prescriptions: New aspirin 81 mg Tablet,Delayed Release (Dr/Ec) 81 mg PO BID Qty: 56 RF: 0 acetaminophen 500 mg Tablet 1,000 mg PO Q8 PRN (Reason: pain/fevers) Qty: 90 RF: 0 celecoxib [Celebrex] 200 mg Capsule 200 mg PO BID PRN (Reason: pain/inflammation) Qty: 28 RF: 0 sennosides [Senokot] 8.6 mg Tablet 17.2 mg PO HS PRN (Reason: constipation) Qty: 28 RF: 0 oxycodone 5 mg Tablet 5 mg PO Q6H MDD 4 PRN (Reason: pain) Qty: 30 RF: 0 Continued Calcium 600 + D(3) 600 mg calcium- 200 unit Capsule 1 cap PO QAM RF: 0 cholecalciferol (vitamin D3) [Vitamin D3] 25 mcg (1,000 unit) Tablet,Chewable 25 mcg PO QAM RF: 0 Aleve 1 tab PO BID RF: 0 Discontinued aspirin [Aspir-81] 81 mg Tablet,Delayed Release (Dr/Ec) 81 mg PO QAM RF: 0 Discharge Orders: Discharge Order (Routine); Ordered 08/30/20 Ordered By: Alessandro Beck Admission Data Admit Date/Time: 08/29/20 11:54 Attending Provider: Robert Castanon Admit Provider: Robert Castanon Primary Care Provider: Kleber Rodriguez Other Providers: Willy Baez,Home Health Other Interventions: Discharge Summary Assessment (RN) Last Done: 08/30/20 11:04
== END 2020-08-30 13:27 | disposition home health service (06) ==
LOC: 3E 07:06 → ASU 07:06